=== PATIENT | male | born 1965 | race Caucasian/White ===

== ENCOUNTER → 2016-11-13 | Outpatient (CLI) | payer BC ==
[~2016-11-13] MED LIST: HYDROCODONE-A1 UDTA4 PO; LISINOPRIL20 MG PO; TYLENOL325 M1 PO
--- NOTE | ~2016-11-13 | CT3 ---
[facility] A Service of [facility] & [facility] [place] RADIOLOGY TEXT RESULTS PATIENT: KRISTYN TALBOT LOCATION: [facility] : 61 UNIT #: [id number] AGE: [address]: Andrew Fontaine MD SEX: M ORDER DR: [id number] [place] [id number] O MR#: [id number] Acc #: [id number] NAME: KRISTYN TALBOT : 1965 SEX: M STUDY DATE/TIME: 11/13/2016 9:11 UNIT: [facility] ROOM: STUDY DESCRIPTION: CT Abd and Pelv WWo Cont Attending Physician: Andrew Fontaine M.D. Referring Physician: Andrew Fontaine M.D. Ordering Physician: Andrew Fontaine M.D. Primary Care Physician: Jayce Tejada M.D. MEDICAL IMAGING REPORT This report is preliminary unless electronic signature is present. EXAM CT abdomen and pelvis without and with contrast. INDICATIONS Involvement of the left ureter by inguinal hernia. Patient is status post inguinal hernia repair. Followup evaluation of the left ureter and observation for hydronephrosis. PROCEDURE Unenhanced CT of the abdomen and pelvis. Postcontrast CT of the abdomen and pelvis with multiphase acquisition through the kidneys, including 5-minute delayed imaging through the abdomen and pelvis. This CT exam was performed with one or more of the following radiation dose reduction techniques: automatic exposure control, adjustment of mA and/or kV according to patient size, and iterative reconstruction. COMPARISON 10/13/2016 FINDINGS ABDOMEN WITHOUT CONTRAST: The included lung bases are clear. Hepatic steatosis. No radiodense gallstones. There is a small amount of high-attenuation material in the right and left renal calyces. No radiodense urinary system calculus. Redemonstration of lateral left ureteral deviation. There is also some thickening of the ureter at the mid ureteral level. PELVIS WITHOUT CONTRAST: No radiodense bladder calculus. ABDOMEN WITH CONTRAST: Kidneys show prompt symmetric enhancement. No enhancing renal mass. Small bilateral renal cysts. Symmetric excretion of contrast. There is mild asymmetric prominence of the left renal pelvis [facility] A Service of [facility] & [facility] [place] RADIOLOGY TEXT RESULTS PATIENT: KRISTYN TALBOT LOCATION: [facility] : [birth year] UNIT #: [id number] AGE: [address]: Andrew Fontaine MD SEX: M ORDER DR: compared with the right. This is stable to minimally improved compared with the previous CT. As stated above, there is some thickening of the mid left ureter as it deviates laterally in the area of previous hernia repair. The left ureter is patent. No liver mass. Spleen, adrenal glands, pancreas unremarkable. Bowel loops are nondilated. There is mild persistent stranding in the left lower quadrant abdominal fat in the area of previous hernia repair. The degree of left-sided hydronephrosis is improved compared with a 07/13/2016 CT. PELVIS WITH CONTRAST: No bladder mass. No pelvic mass is seen. No aggressive appearing bone lesion. L5 pars defects with grade 1 anterolisthesis. IMPRESSION 1. Previous left inguinal hernia repair. The left ureter still takes the lateral borders and has a somewhat corkscrewed appearance. The left ureter is thickened at the mid ureteral level, but is patent. 2. Stranding in the left lower quadrant abdominal fat is slightly improved compared with the most recent comparison study. 3. Slight asymmetric prominence of the left renal pelvis and calyces, but improving compared with the 07/26/2016 CT. 4. Hepatic steatosis. Dictated by... Edvin Monsalve M.D. THIS IS AN ELECTRONICALLY VERIFIED REPORT Edvin Monsalve M.D. at 11/17/2016 7:02 AM MARCELA/cyn TD: 11/13/2016 13:06 JOB #: [id number] MEDICAL IMAGING REPORT
[2016-11-13 09:05] LABS: POC - CREATININE 1.01 mg/dL (0.64-1.27); POC - GFR >60.0 mL/min (>60)
== END | disposition home or self-care (01) ==
LOC: SCT 08:53
PROVIDERS: Urology
DX: N13.30 Unspecified hydronephrosis (principal); N13.8 Other obstructive and reflux uropathy; N28.89 Other specified disorders of kidney and ureter; K76.0 Fatty (change of) liver, not elsewhere classified; Z98.890 Other specified postprocedural states
CPT/HCPCS: 74178; 82565; Q9967

== ENCOUNTER → 2017-02-16 | Outpatient (CLI) | payer BC ==
--- NOTE | ~2017-02-16 | US77 ---
[facility] A Service of [facility] & [facility] RADIOLOGY TEXT RESULTS PATIENT: KRISTYN TALBOT LOCATION: [facility] : 61 UNIT #: [id number] AGE: [address]: Andrew Fontaine MD SEX: M ORDER DR: [id number] [place] [id number] O MR#: [id number] Acc #: [id number] NAME: KRISTYN TALBOT : 1965 SEX: M STUDY DATE/TIME: 02/16/2017 15:37 UNIT: [facility] ROOM: STUDY DESCRIPTION: US Kidney Bilateral Complete Attending Physician: Andrew Fontaine M.D. Referring Physician: Andrew Fontaine M.D. Ordering Physician: Andrew Fontaine M.D. Primary Care Physician: Jayce Tejada M.D. MEDICAL IMAGING REPORT This report is preliminary unless electronic signature is present. EXAM Renal ultrasound, 02/16/17. HISTORY Hydronephrosis with stent placed after hernia surgery. Involvement of left ureter by inguinal hernia resulting in hydronephrosis. Follow up evaluation of left ureter. Observation for hydronephrosis. FINDINGS The right kidney measured 12.3 cm while the left kidney measured 11.8 cm in longitudinal dimensions. There is no evidence of hydronephrosis or nephrolithiasis. No cystic or solid mass lesions were seen on either kidney. There is normal renal cortical echogenicity. The bladder was empty for the examination and therefore poorly visualized. IMPRESSION 1. Negative renal ultrasound. 2. The bladder was empty for the exam and therefore poorly visualized. Dictated by... Twan Chen M.D. THIS IS AN ELECTRONICALLY VERIFIED REPORT Twan Chen M.D. at 02/17/2017 8:29 AM SEVERIANO/chitra TD: 02/16/2017 19:02 JOB #: [id number] MEDICAL IMAGING REPORT Page 1 of 1
[2017-02-16 16:33] LABS: BUN/CREATININE RATIO 21.11; CREATININE SERUM 0.9 mg/dL (0.6-1.4); GLOM FILT RATE Estimated 97.2 mL/min (>60); POTASSIUM 3.8 mmol/L (3.5-5.1)
[2017-02-16 21:42] LABS: PROSTATE SPECIFIC AG SCR 0.83 ng/ml (0.0-4.0)
== END | disposition home or self-care (01) ==
LOC: SGUS 15:22 → CGUS 15:45
PROVIDERS: Urology
DX: N13.30 Unspecified hydronephrosis (principal)
CPT/HCPCS: 36415; 76775; 80048; G0103